=== PATIENT | male | born 1975 | race African-American/Black ===

== ENCOUNTER 2019-03-26 14:39 | Emergency (ER) | payer MEDICAID ==
[~2019-03-26] VITALS: Ht 167.6 cm; Wt 62.0 kg
[2019-03-26] MEDS ORDERED: METHYLPREDNISOLONE SOD SUCC 125 MG/2 ML VIAL IM ONE (16:15)
[2019-03-26] MEDS ORDERED: IBUPROFEN 600MG TABLET PO ONE (16:15)
[2019-03-26 17:26] VITALS: BP 125/84
== END 2019-03-26 17:28 | disposition home or self-care (01) ==
LOC: ER 14:39
DX: S82.52XA Displaced fracture of medial malleolus of left tibia, initial encounter for closed fracture (principal); W19.XXXA Unspecified fall, initial encounter; Y93.67 Activity, basketball; Y92.89 Other specified places as the place of occurrence of the external cause; Y99.8 Other external cause status
CPT/HCPCS: 29515; 73610; 99283